=== PATIENT | female | born 1945 | race Caucasian/White ===

== ENCOUNTER 2020-03-28 19:26 | Inpatient (IN) ==
[2020-03-28] MEDS ORDERED: IOPAMIDOL 100 ML BOTTLE IV ONE (19:27)
[2020-03-28] MEDS ORDERED: 0.9 % SODIUM CHLORIDE 1,000 ML IV ONE ×2 (19:42→22:21)
--- NOTE | 2020-03-28 20:06 | Emergency Department Note ---
Abdominal Pain HPI General Chief Complaint: Abdominal Pain Stated Complaint: abd. pain Time Seen by Provider: 03/28/20 19:41 Source: patient and family Mode of arrival: EMS Limitations: no limitations History of Present Illness HPI Narrative: Narrative: Patient is a 74-year-old female who comes into the emergency department today by EMS. Patient reports that she has been seen by GI and was scheduled to have a colonoscopy done next week. She had a CT scan of her abdomen 4 days ago that showed partial large bowel obstruction in the sigmoid colon at the site where diverticulitis had previously occurred. There was concern of scar tissue versus recurrent low-grade diverticulitis or colon cancer. Patient was informed by Lydia Holm through GI to change to liquid diet. Patient reports she was following a liquid diet on Sunday, Sunday, and today she was supposed to take mag citrate. She reports that she had vomited the mag citrate and since that time has been vomiting the mag citrate and Gatorade and has not been able to keep fluids down all day. She does report having a soft brown bowel movement today. She denies any melena or hematochezia. She did start feeling some weakness since starting to have sharp left lower quadrant abdominal pain that comes and goes in waves. She has a history of COPD and reports that she currently uses 3 L of O2 constantly. She has had a slight cough, but this is not a new finding for her. EMS had started an IV and she currently arrives with some normal saline infusing. She reports 133, and a temperature of 101.6. She has not noticed any fevers or chills at home. She denies any back pain, chest pain, shortness of breath, or difficulty breathing. Related Data Home Medications Medication Instructions Recorded Confirmed inhalational spacing device 04/23/17 01/26/20 cholecalciferol (vitamin D3) 2,000 unit PO QDAY 07/24/19 01/26/20 Previous Rx's Medication Instructions Recorded albuterol sulfate 90 mcg/actuation 2 inh INHALATION Q6H #1 each 07/16/19 breath activated powder inhaler fluticasone fur. 100 mcg-umeclid 1 inh INHALATION Q24H #60 each 08/21/19 62.5 mcg-vilant 25 mcg inhalat.powder levothyroxine 100 mcg capsule 100 mcg PO QAM #90 cap 11/17/19 hydroxychloroquine 200 mg tablet 200 mg PO BID #60 tab 12/04/19 prednisone 5 mg tablet See Rx Instructions .ROUTE 12/04/19 .COMPLEX #45 tab amitriptyline 25 mg tablet See Rx Instructions PO QDAY #60 tab 01/27/20 lorazepam 1 mg tablet 2 mg PO QHS #60 tab 01/27/20 hydrocodone 5 mg-acetaminophen 325 1 tab PO QDAY #30 tab 03/23/20 mg tablet tramadol 50 mg tablet See Rx Instructions .ROUTE 03/25/20 .COMPLEX #30 unknown measurement unit code: tablet Allergies Allergy/AdvReac Type Severity Reaction Status Date / Time codeine Allergy Unknown Hallucinati Verified 01/26/20 16:24 ons succinylcholine Allergy Unknown Paralysis Verified 01/26/20 16:24 Review of Systems ROS ROS Narrative: Narrative: Constitutional: Denies fever and chills Eyes: Denies vision change ENT ED: Denies ear pain and throat pain Cardiovascular: Denies chest pain and palpitations Respiratory: Reports cough; Denies shortness of breath and phlegm Gastrointestinal: Reports as per HPI, abdominal pain, nausea and vomiting Genitourinary: Denies dysuria and frequency Musculoskeletal: Denies back pain and joint swelling Integumentary: Denies rash and lesions Neurological: Denies headache and weakness Psychiatric: Denies anxiety and depression Endocrine: Denies fatigue and heat or cold intolerance Hematological/Lymphatic: Denies easy bleeding and easy bruising PFSH Narrative Patient History Narrative: Narrative: Medical/Surgical/Family History All Active Problems (Updated 03/28/20 @ 21:52 by NAY Seirra) Chest pain at rest (Acute) Oral mucosal lesion (Acute) Emphysema of lung (Acute) O2 dependent (Acute) Diverticulitis (Acute) UTI (urinary tract infection) (Acute) Abdominal pain (Acute) Chronic pain after surgical procedure for malignant neoplasm (Chronic) Chronic, continuous use of opioids (Chronic) Depression (Chronic) IBS (irritable bowel syndrome) (Chronic) Osteoporosis (Acute) Polyarthralgia (Acute) Encounter for long-term (current) use of high-risk medication (Acute) 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) Inflammatory arthritis (Acute) H/O malignant neoplasm of breast (Chronic) Generalized joint pain (Chronic) Medicare annual wellness visit, subsequent (Chronic) Breast cancer, left (Chronic) History of tobacco abuse (Chronic) Migraines (Chronic ~2014) Joint pain (Chronic ~2014) Insomnia (Chronic ~2009) Daytime sleepiness (Chronic ~2011) Muscle pain (Chronic ~2011) Arthritis (Chronic ~1999) Hypoxia (Chronic) COPD (chronic obstructive pulmonary disease) (Chronic) Pseudocholinesterase deficiency (Chronic) Pelvic inflammatory disease contact (Chronic) Pneumothorax (Chronic) Anxiety disorder (Chronic ~2009) Chronic hypoxemic respiratory failure (Chronic) Carcinoid tumor of lung (Chronic) Hypothyroidism (Chronic ~2011) Major depressive disorder, recurrent episode, in partial remission (Chronic ~2000) Class 1 obesity with body mass index (BMI) of 30.0 to 30.9 in adult (Chronic) Atherosclerosis of aorta (Chronic) Medical History (Updated 03/28/20 @ 21:52 by NAY Sierra) Anxiety disorder (Chronic ~2009) Arthritis (Chronic ~1999) Atherosclerosis of aorta (Chronic) Breast cancer, left (Chronic) 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 Chronic hypoxemic respiratory failure (Chronic) Chronic pain after surgical procedure for malignant neoplasm (Chronic) Chronic, continuous use of opioids (Chronic) Class 1 obesity with body mass index (BMI) of 30.0 to 30.9 in adult (Chronic) COPD (chronic obstructive pulmonary disease) (Chronic) Daytime sleepiness (Chronic ~2011) Depression (Chronic) Emphysema lung (Chronic) Encounter for long-term (current) use of high-risk medication (Acute) Generalized joint pain (Chronic) H/O malignant neoplasm of breast (Chronic) History of tobacco abuse (Chronic) Hypothyroidism (Chronic ~2011) Hypoxia (Chronic) IBS (irritable bowel syndrome) (Chronic) Inflammatory arthritis (Acute) Insomnia (Chronic ~2009) Joint pain (Chronic ~2014) 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) Major depressive disorder, recurrent episode, in partial remission (Chronic ~2000) Medicare annual wellness visit, subsequent (Chronic) Migraines (Chronic ~2014) Muscle pain (Chronic ~2011) Osteoporosis (Acute) Oxygen dependent (Chronic) nocturnal and with exertion Pelvic inflammatory disease contact (Chronic) Pneumothorax (Chronic) Polyarthralgia (Acute) Pseudocholinesterase deficiency (Chronic) Surgical History History of cataract surgery (Chronic) History of cholecystectomy (Chronic) 2015 History of laparoscopy (Chronic) S/P mastectomy, bilateral (Chronic) Family History Brother Aortic aneurysm Mother COPD (chronic obstructive pulmonary disease) Arthritis Hypertension, essential Heart attack Father Pneumonia Dementia Hypertension, essential Grandfather Stroke Paternal Social History Smoking Status: Former smoker Alcohol Intake Frequency: a few times a month Substance Use: does not use Exam Narrative Narrative: Narrative: General Limitations: no limitations General appearance: alert and in no apparent distress Eye Eye: Present normal appearance, PERRL and EOMI; Absent scleral icterus and conju nctival injection ENT ENT: Present normal oropharynx and mucous membranes moist Neck Neck: Present normal inspection, full ROM and trachea midline; Absent tenderness, lymphadenopathy and thyromegaly Chest Chest: Present symmetric chest wall rise Respiratory Respiratory: Present other (Lung sounds clear to auscultate with slightly diminished bases bilaterally.); Absent respiratory distress, wheezes, stridor, accessory muscle use and prolonged expiratory phase Cardiovascular Cardiovascular: Present normal rhythm and tachycardia; Absent systolic murmur and diastolic murmur Adbominal Abdominal: Present soft, tenderness (Left lower quadrant has moderate tenderness with palpation) and hypoactive bowel sounds; Absent distention, guarding and hernia Extremities Extremities: Present normal inspection, full ROM and normal capillary refill; Absent pedal edema, pretibial edema, calf tenderness and cyanosis Back Back: Present normal inspection; Absent CVA tenderness (R) and CVA tenderness (L) Neurological Neurological: Present alert and oriented X3 Psychiatric Psychiatric: Present normal affect and normal mood Skin Skin: Present warm, dry and normal color Course Course Course Narrative: 2054 -White count 13.7, lactic acid normal. Chest x-ray to my review does not show any definite sign of pneumonia. Will give the patient 50 mg of diphenhydramine and proceed with CT abdomen pelvis with contrast. 2149 -patient returned from CT. She is resting comfortably in the room at this time. Report given to Dr. Espinosa who will assume care at 2199 due to shift [facility]. Vital Signs Vital signs: Vital Signs Temperature 101.6 F H 03/28/20 19:27 Pulse Rate 134 H 03/28/20 19:27 Respiratory Rate 25 H 03/28/20 19:27 Blood Pressure 177/80 03/28/20 19:27 Pulse Oximetry (%) 99 03/28/20 19:27 Temperature 101.6 F H 03/28/20 19:27 Pulse Rate 109 H 03/28/20 21:12 Respiratory Rate 24 H 03/28/20 20:46 Blood Pressure 166/62 03/28/20 21:01 Pulse Oximetry (%) 100 03/28/20 21:12 MDM MDM Narrative Medical decision making narrative: Narrative: Lab Data Result diagrams: 03/28/20 19:56 03/28/20 19:56 Labs: Lab Results 03/28/20 03/28/20 03/28/20 Range/Units 19:56 19:56 19:56 WBC 13.7 H (4.50-11.00) K/mcL RBC 4.09 (3.59-5.38) M/mcL Hgb 10.3 L (11.2-15.7) g/dL Hct 33.2 L (34.1-44.9) % POC Hct 32.0 L (36.0-48.0) % MCV 81.2 (80.0-100.0) fL MCH 25.2 L (26.0-34.0) pg MCHC 31.0 (31.0-36.0) g/dL RDW 14.3 (11.5-14.5) % Plt Count 378 (140-440) K/mcL MPV 10.1 (7.4-10.4) fL Gran % 82.6 H (38.0-78.0) % Lymph % (Auto) 7.0 L (15.5-49.0) % Haskell % (Auto) 9.8 (1.0-12.0) % Eos % (Auto) 0.4 (0.0-7.0) % Baso % (Auto) 0.2 (0.0-2.0) % Gran # 11.27 H (1.80-8.00) K/mcL Lymph # (Auto) 0.96 L (1.50-4.80) K/mcL Haskell # (Auto) 1.34 H (0.10-0.90) K/mcL Eos # (Auto) 0.05 (0.00-0.70) K/mcL Baso # (Auto) 0.03 (0.00-0.30) K/mcL VBG Lactic Acid 0.8 (0.5-2.0) mmol/L POC Sodium 137 (133-145) mmol/L Sodium 134 (133-145) mmol/L POC Potassium 4.1 (3.3-5.1) mmol/L Potassium 4.0 (3.3-5.1) mmol/L POC Chloride 100 (96-108) mmol/L Chloride 97 (96-108) mmol/L Carbon Dioxide 23 (22-30) mmol/L POC Total CO2 24 (22-30) mmol/L Anion Gap 14.0 (8-16) POC BUN 8 (8-23) mg/dl BUN 9 (8-23) mg/dl Creatinine 0.8 (0.6-1.1) mg/dl POC Creatinine 0.7 (0.6-1.1) mg/dl GFR Calculation 74 Glucose 108 H (70-105) mg/dL POC Glucose 109 H (70-105) mg/dL Calcium 8.5 L (8.6-10.4) mg/dl POC WB Ioniz Calcium 1.06 L (1.16-1.32) mmol/L Total Bilirubin 0.4 (0.0-1.0) mg/dL AST 16 (0-37) U/l ALT 16 (0-40) U/l Alkaline Phosphatase 71 (39-117) U/L C-Reactive Protein 16.2 H (0.0-0.8) mg/dl Total Protein 6.4 (5.9-8.4) gm/dL Albumin 3.3 (3.2-5.2) gm/dL Globulin 3.1 (2.2-3.7) gm/dL Albumin/Globulin Ratio 1.1 (1.0-2.3) Lipase 20 (7-60) U/L EKG Data EKG #1: EKG attestation: Yes I reviewed and interpreted this EKG. and Yes There are no EKG findings of acute coronary syndrome EKG shows normal: sinus rhythm Rate: tachycardia Discharge Plan Patient/Caregiver Discharge Instructions Pt seen by [employer] ADMINISTRATOR/PA only: No Clinical Impression: Abdominal pain Patient Disposition: Still a Patient Condition: Undetermined Follow up with: Inez Merida DO [Primary Care Provider] - Prescriptions: No Action ProAir RespiClick 90 mcg/actuation aerosol powdr breath activated 2 inh INHALATION Q6H Qty: 1 RF: 6 levothyroxine 100 mcg capsule 100 mcg PO QAM Qty: 90 RF: 0 amitriptyline 25 mg tablet See Rx Instructions PO QDAY Qty: 60 RF: 2 lorazepam 1 mg tablet 2 mg PO QHS Qty: 60 RF: 2 hydrocodone-acetaminophen 5-325 mg tablet 1 tab PO QDAY Qty: 30 RF: 0 tramadol 50 mg tablet See Rx Instructions .ROUTE .COMPLEX Qty: 30 RF: 3 cholecalciferol (vitamin D3) 2,000 unit/drop drops 2,000 unit PO QDAY RF: 0 (DME) inhalational spacing device [[employer] 1er Z-Stat Plus-Flw Sg] spacer See Dose Instructions .ROUTE .MEDSUPPLY RF: 0 fluticasone fur. 100 mcg-umeclid 62.5 mcg-vilant 25 mcg inhalat.powder 100-62.5-25 mcg blister with device 1 inh INHALATION Q24H Qty: 60 RF: 6 hydroxychloroquine [Plaquenil] 200 mg tablet 200 mg PO BID Qty: 60 RF: 3 prednisone 5 mg tablet See Rx Instructions .ROUTE .COMPLEX Qty: 45 RF: 2
[2020-03-28 20:16] LABS: POC Blood Urea Nitrogen 8 mg/dl (8-23); POC CO2 24 mmol/L (22-30); POC Calcium, Ionized 1.06 mmol/L (1.16-1.32); POC Chloride 100 mmol/L (96-108); POC Creatinine 0.7 mg/dl (0.6-1.1); POC Glucose, Random 109 mg/dL (70-105); POC Potassium 4.1 mmol/L (3.3-5.1); POC Sodium 137 mmol/L (133-145)
[2020-03-28 20:50] LABS: Basophils # (Auto) 0.03 K/mcL (0.00-0.30); Basophils % (Auto) 0.2 % (0.0-2.0); Eosinophils # (Auto) 0.05 K/mcL (0.00-0.70); Eosinophils % (Auto) 0.4 % (0.0-7.0); Granulocytes % (Auto) 82.6 % (38.0-78.0); Hematocrit 33.2 % (34.1-44.9); Hemoglobin 10.3 g/dL (11.2-15.7); Lymphocytes # (Auto) 0.96 K/mcL (1.50-4.80); Mean Cell Volume 81.2 fL (80.0-100.0); Mean Platelet Volume 10.1 fL (7.4-10.4); Monocytes # (Auto) 1.34 K/mcL (0.10-0.90); Monocytes % (Auto) 9.8 % (1.0-12.0); Platelet Count 378 K/mcL (140-440); RBC 4.09 M/mcL (3.59-5.38); Red Cell Distribution Width 14.3 % (11.5-14.5); WBC 13.7 K/mcL (4.50-11.00)
[2020-03-28] MEDS ORDERED: diphenhydrAMINE 50 MG/ML VIAL IV ONE (20:56)
[2020-03-28 21:07] LABS: ALT/SGPT 16 U/l (0-40); AST/SGOT 16 U/l (0-37); Albumin 3.3 gm/dL (3.2-5.2); Albumin/Globulin Ratio 1.1 (1.0-2.3); Alkaline Phosphatase 71 U/L (39-117); Bilirubin,Total 0.4 mg/dL (0.0-1.0); Blood Urea Nitrogen 9 mg/dl (8-23); C-Reactive Protein 16.2 mg/dl (0.0-0.8); Calcium 8.5 mg/dl (8.6-10.4); Carbon Dioxide 23 mmol/L (22-30); Chloride 97 mmol/L (96-108); Globulin 3.1 gm/dL (2.2-3.7); Glomerular Filtration Rate 74; Glucose 108 mg/dL (70-105)
--- NOTE | 2020-03-28 22:00 | XRay Report ---
HISTORY: Cough, COPD, left upper lobe carcinoma FINDINGS: Patient has moderate emphysema. A well-circumscribed 3.4 x 4 cm mass is present in the left upper lobe superimposed over the left upper hilum. This continues to slowly enlarged compared with prior CT scans done on 01/07/2019 and 09/15/2019. No new lung mass is developed. There is no evidence of pneumonia or pleural effusion. The heart size is normal. IMPRESSION: Stable emphysema Slowly enlarging tumor at the boundary of the superior segment of the lingula and anterior segment of the left upper lobe Interpreted and Authenticated by: Ketan Johnson 03/28/20
[2020-03-28 22:22] LABS: Appearance,Urine CLEAR; Bacteria,Urine MOD /hpf (0); Bilirubin,Urine NEG (NEG); Color,Urine YELLOW; Culture Indicated,Urine YES; Glucose,Urine (UA) NEGATIVE (NEG); Ketones,Urine 20 mg/dL (NEG); Leukocyte Esterase,Urine 75 /uL (NEG); Mucus,Urine FEW /hpf (0); Nitrate,Urine NEG (NEG); Protein,Urine 30 mg/dL (NEG); Urine Blood 0.03 mg/dL (<0.03); Urine RBC 2 /hpf (0-1); Urine Squamous Epithelial Cell 1 /hpf (0-4); Urine WBC 20 /hpf (0-4); Urobilinogen,Urine NEG (NEG)
--- NOTE | 2020-03-28 22:23 | Cat Scan Report ---
History: Left lower quadrant pain and leukocytosis TECHNIQUE: The patient was imaged following intravenous contrast during the portal venous phase and excretory phase. Sagittal and coronal reformats were created. The radiation exposure was limited using dose reduction technology. FINDINGS: Moderate centrilobular emphysema is present in both lower lobes. There are multiple multiple cysts in the liver measuring up to 7.2 cm. These are chronic stable findings, seen in 07/12/18. The spleen is normal in size and homogeneous. The gallbladder has been removed. The bile ducts are nondilated. There is an no mass or inflammation the pancreas. Left adrenal gland is mildly hyperplastic. The right adrenal when is normal. The enlarged left adrenal is a chronic stable finding. In the midportion of the right kidney there is a nonobstructing 3 x 4 mm calculus. Small parapelvic cysts are present in the lower pole of the right kidney and there is no hydronephrosis or mass in the right kidney. The left kidney there is a 8 mm cyst in the lower pole calyx. Moderate hydronephrosis is present in the left kidney and there is dilatation of the left ureter down to the lower pelvis. This is a new finding since recent CT done on 03/24/20. There are no stones within the ureter nor the urinary bladder. Patient has diverticulitis in the sigmoid colon. There is stranding of the surrounding fat. There is also tethering which may be formation of adhesions between the sigmoid and the adjacent loops of small bowel, as well as the left ureter. The left ureter is probably being obstructed by inflammation and fibrosis secondary to the chronic diverticulitis. Diverticulitis was seen in the same region on the prior CTs done on 03/24/2020 and 07/09/2019. The fibrotic changes have evolved. There is no evidence of an abscess or ascites. Uterus and ovaries are atrophic and normal for patient's age. The appendix is noninflamed. Small intestine is nondistended. Moderate amount stool is present in the colon above the diverticulitis. IMPRESSION: Chronic/recurrent diverticulitis in the sigmoid colon. The inflammation is causing partial obstruction of the distal left ureter and fecal impaction proximal to the inflamed segment of colon Moderate hydronephrosis in the left kidney, due to sigmoid diverticulitis causing obstruction of the distal left ureter Nonobstructing stones in both kidneys Emphysema Stable hepatic cysts Interpreted and Authenticated by: Ketan Johnson 03/28/20
[2020-03-28] MEDS ORDERED: CIPROFLOXACIN 400 MG/200 ML BAG IV ONE (22:28)
[2020-03-28] MEDS ORDERED: metroNIDAZOLE 500 MG/100 ML BAG IV ONE (22:28)
[2020-03-28] MEDS ORDERED: HYDROXYCHLOROQUINE 200 MG TABLET PO ONE (23:04)
[2020-03-28] MEDS ORDERED: HYDROcodone/APAP 5/325MG TABLET PO ONE (23:05)
[2020-03-28] MEDS ORDERED: AMITRIPTYLINE 25 MG TABLET PO ONE (23:05)
[2020-03-28] MEDS ORDERED: LORazepam 1 MG TABLET PO ONE (23:05)
[2020-03-28] MEDS ORDERED: ONDANSETRON 4 MG/2 ML VIAL IV PRN (23:21)
[2020-03-28] MEDS ORDERED: CIPROFLOXACIN 400 MG/200 ML BAG IV SCH (23:30)
[2020-03-28] MEDS ORDERED: metroNIDAZOLE 500 MG/100 ML BAG IV SCH (23:30)
[2020-03-28] MEDS: 0.45 % SODIUM CHLORIDE 1,000 ML IV SCH (23:55)
[2020-03-29] MEDS: 0.9 % SODIUM CHLORIDE 10 ML SYRINGE IV SCH ×3 (04:09→20:32)
[2020-03-29] MEDS: metroNIDAZOLE 500 MG/100 ML BAG IV SCH ×3 (04:43→20:22)
[2020-03-29] MEDS ORDERED: metroNIDAZOLE 500 MG/100 ML BAG IV ONE (04:46)
[2020-03-29] MEDS: HYDROmorphone 0.5 MG/0.5 ML SYRINGE IV PRN ×3 (05:38→18:37)
[2020-03-29] MEDS: 0.45 % SODIUM CHLORIDE 1,000 ML IV SCH ×4 (07:20→18:37)
[2020-03-29] MEDS: CIPROFLOXACIN 400 MG/200 ML BAG IV SCH ×2 (08:35→20:26)
[2020-03-29] MEDS ORDERED: CIPROFLOXACIN 400 MG/200 ML BAG IV SCH (09:00)
[2020-03-29] MEDS: DOCUSATE SODIUM 100 MG CAPSULE PO SCH ×2 (09:26→20:32)
--- NOTE | 2020-03-29 15:44 | Brief Operative Note ---
Brief Operative Note Date of procedure: 03/29/20 Pre-op diagnosis: acute appendicitis Post-op diagnosis: other (acute appendicitis) Procedure: laparoscopic appendectomy Grafts/Implants: No Anesthesia: GETA Findings: acute suppurative appendicitis Complications: none Surgeon: Loyda Horta Estimated blood loss (cc): 10 Specimens Removed/Pathology: other (appendix) Condition: stable Disposition: PACU
--- NOTE | 2020-03-29 17:11 | General Surg History&Physical ---
HPI History of Present Illness Patient information: Note initiated : 03/29/20 at 4:42 pm Service Date, if different from initiated Date: [] Patient: Katina Guzmán a 74 y/o F admitted on 03/28/20 for abd. pain. Chief Complaint: [] Chief complaint: colonic obstruction; recurrent nausea vomiting History of present illness: Ms. Guzmán is a 74 year old F admitted with evidence of mid sigmoid colon obstruction with history of chronic diarrhea and recurrent nausea and vomiting. The patient has a 10 month history of left-sided abdominal pain with associated the 15-20 bowel movements per day. This has been continuous since onset. She has taken intermittent laxatives to have a bowel movement and then would take antidiarrheals to stop the diarrhea. She denies rectal bleeding. She has been followed by gastroenterology. She denies weight loss. Recent CT done last evening shows near complete obstruction of her mid sigmoid colon with large volume of stool proximal to the area of obstruction. She has a circumferential lesion in the mid sigmoid with minimal lumen suggesting more likely a neoplastic lesion or chronic high-grade obstruction with high-grade stricture. She was admitted last evening. There was a plan to do colonoscopy tomorrow but the patient has high-grade obstruction and will need operative therapy. The patient has severe chronic obstructive lung disease with FEV1 of .56 L. 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 She has been oxygen dependent for many years. I discussed the patient with finance lecturer who feels that the patient should have surgery at a facility where there are critical care, pulmonary and cardiac support. Quite agreeable with this and will make arrangements to have her transferred hopefully to [facility]. Constitutional Constitutional: Present malaise, weakness and weight loss EENT Eyes: Absent blurry vision, loss of peripheral vision and loss of vision Ears: Absent decreased hearing and tinnitus Nose, mouth and throat: Present headache(s); Absent disequilibrium and dizziness Breasts Breasts: Present other (status post bilateral mastectomy) Cardiovascular Cardiovascular: Present dyspnea on exertion, palpatations and rapid heart rate; Absent chest pain, edema and pedal edema Respiratory Respiratory: Present cough, dyspnea, dyspnea on exertion, wheezing and chest congestion Gastrointestinal Gastrointestinal: Present abdominal pain, change in bowel habits, change in stool character, constipation, cramping, diarrhea, heartburn, loose stools, nausea and vomiting Genitourinary Genitourinary: Present dysuria, urinary frequency and urinary urgency Musculoskeletal Musculoskeletal: Present abnormal gait, arthralgias, muscle weakness and myalgias Integumentary Integumentary: Absent pruritus and rash Neurological Neurological: Present dizziness, headache(s) and vertigo; Absent abnormal gait and abnormal hearing Psychiatric Psychiatric: Present anxiety, confusion and depression Endocrine Endocrine: Absent flushing and palpitations Hematologic/Lymphatic Hematologic/Lymphatic: Absent easy bleeding, easy bruising and lymphadenopathy Allergic/Immunologic Allergic/Immunologic: Absent tongue swelling, throat swelling, itchy eyes, ut icaria, wheezing and lip swelling [facility] Medical History (Updated 03/29/20 @ 17:07 by Loyda Horta MD) Anxiety disorder (Chronic ~2009) Arthritis (Chronic ~1999) Atherosclerosis of aorta (Chronic) Breast cancer, left (Chronic) 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 Chronic hypoxemic respiratory failure (Chronic) Chronic pain after surgical procedure for malignant neoplasm (Chronic) Chronic, continuous use of opioids (Chronic) Class 1 obesity with body mass index (BMI) of 30.0 to 30.9 in adult (Chronic) COPD (chronic obstructive pulmonary disease) (Chronic) Daytime sleepiness (Chronic ~2011) Depression (Chronic) Emphysema lung (Chronic) Encounter for long-term (current) use of high-risk medication (Acute) Generalized joint pain (Chronic) H/O malignant neoplasm of breast (Chronic) History of tobacco abuse (Chronic) Hypothyroidism (Chronic ~2011) Hypoxia (Chronic) IBS (irritable bowel syndrome) (Chronic) Inflammatory arthritis (Acute) Insomnia (Chronic ~2009) Joint pain (Chronic ~2014) long-term (current) use of systemic steroids (Acute) Major depressive disorder, recurrent episode, in partial remission (Chronic ~2000) Medicare annual wellness visit, subsequent (Chronic) Migraines (Chronic ~2014) Muscle pain (Chronic ~2011) Osteoporosis (Acute) Oxygen dependent (Chronic) nocturnal and with exertion Pelvic inflammatory disease contact (Chronic) Pneumothorax (Chronic) Polyarthralgia (Acute) Pseudocholinesterase deficiency (Chronic) Surgical History History of cataract surgery (Chronic) History of cholecystectomy (Chronic) 2014 History of laparoscopy (Chronic) S/P mastectomy, bilateral (Chronic) Family History Brother Aortic aneurysm Mother COPD (chronic obstructive pulmonary disease) Arthritis Hypertension, essential Heart attack Father Pneumonia Dementia Hypertension, essential Grandfather Stroke Paternal Social History (Updated 01/26/20 @ 16:54 by Inez Merida DO) marital status: education level: college occupational status: 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 100 mcg-umeclid 1 inh INHALATION Q24H #60 each 08/21/19 03/28/20 Rx 62.5 mcg-vilant 25 mcg inhalat.powder levothyroxine 100 mcg capsule 100 mcg PO QAM #90 cap 11/17/19 03/28/20 Rx hydroxychloroquine 200 mg tablet 200 mg PO BID #60 tab 12/04/19 03/28/20 Rx lorazepam 1 mg tablet 2 mg PO QHS #60 tab 01/27/20 03/28/20 Rx albuterol sulfate [ProAir 2 inh INHALATION Q6H PRN 03/28/20 03/28/20 History RespiClick] amitriptyline 25 mg PO QHS 03/28/20 03/28/20 History hydrocodone-acetaminophen 1 tab PO QHS 03/28/20 03/28/20 History prednisone 5 mg PO QDAY 03/28/20 03/28/20 History tramadol 50 mg PO BID PRN 03/28/20 03/28/20 History Allergies Allergy/AdvReac Type Severity Reaction Status Date / Time codeine AdvReac Mild Hallucinati Verified 03/29/20 06:10 ons Physical Examination Vital Signs Vital signs: Temp Pulse Resp BP Pulse Ox 98.2 F 102 H 16 114/52 100 03/29/20 16:00 03/29/20 16:00 03/29/20 16:00 03/29/20 16:00 03/29/20 16:00 General physical appearance General physical exam: no distress, moderate pain and chronically ill Eyes Eye exam: PERRL and normal ocular movement ENT ENT exam: normal pinna, normal mucosa and decreased hearing Head Head exam IM: Present atraumatic, normal inspection and normocephalic Neck Neck exam: no masses, no bruits, trachea midline, no lymphadenopathy and no venous distension Cardiovascular Cardiovascular exam IM: Present normal rate and rhythm, JVD, RRR, +S1 and +S2 Respiratory Respiratory exam: normal expansion, normal respiratory effort, clear to perc ussion and clear to auscultation Abdomen Abdomen: Present soft and tender (tenderness in left lower quadrant and suprapubic area) Integumentary Integumentary: Present no rash, no growths and no abnormal pigmentation Neurologic Neurologic: Present normal coordination and normal sensation Musculoskeletal Musculoskeletal: Present normal gait and normal posture Psychiatric Psychiatric: Present oriented to time, oriented to person, oriented to place, speech is normal and memory intact Results Labs Result diagrams: 03/28/20 19:56 03/28/20 19:56 Labs: Abnormal lab results 03/28/20 03/28/20 03/28/20 Range/Units 19:56 19:56 21:13 WBC 13.7 H (4.50-11.00) K/mcL Hgb 10.3 L (11.2-15.7) g/dL Hct 33.2 L (34.1-44.9) % POC Hct 32.0 L (36.0-48.0) % MCH 25.2 L (26.0-34.0) pg Gran % 82.6 H (38.0-78.0) % Lymph % (Auto) 7.0 L (15.5-49.0) % Gran # 11.27 H (1.80-8.00) K/mcL Lymph # (Auto) 0.96 L (1.50-4.80) K/mcL [place] # (Auto) 1.34 H (0.10-0.90) K/mcL Glucose 108 H (70-105) mg/dL POC Glucose 109 H (70-105) mg/dL Calcium 8.5 L (8.6-10.4) mg/dl POC WB Ioniz Calcium 1.06 L (1.16-1.32) mmol/L C-Reactive Protein 16.2 H (0.0-0.8) mg/dl Urine Protein 30 A (NEG) mg/dL Urine Ketones 20 A (NEG) mg/dL Urine Occult Blood 0.03 A (<0.03) mg/dL Ur Leukocyte Esterase 75 A (NEG) /uL Urine RBC 2 H (0-1) /hpf Urine WBC 20 H (0-4) /hpf Urine Bacteria Mod A (0) /hpf Diabetes panel 03/28/20 Range/Units 19:56 Sodium 134 (133-145) mmol/L Potassium 4.0 (3.3-5.1) mmol/L Chloride 97 (96-108) mmol/L Carbon Dioxide 23 (22-30) mmol/L BUN 9 (8-23) mg/dl Creatinine 0.8 (0.6-1.1) mg/dl Glucose 108 H (70-105) mg/dL Calcium 8.5 L (8.6-10.4) mg/dl AST 16 (0-37) U/l ALT 16 (0-40) U/l Alkaline Phosphatase 71 (39-117) U/L Total Protein 6.4 (5.9-8.4) gm/dL Albumin 3.3 (3.2-5.2) gm/dL Calcium panel 03/28/20 Range/Units 19:56 Calcium 8.5 L (8.6-10.4) mg/dl Albumin 3.3 (3.2-5.2) gm/dL Pituitary panel 03/28/20 Range/Units 19:56 Sodium 134 (133-145) mmol/L Potassium 4.0 (3.3-5.1) mmol/L Chloride 97 (96-108) mmol/L Carbon Dioxide 23 (22-30) mmol/L BUN 9 (8-23) mg/dl Creatinine 0.8 (0.6-1.1) mg/dl Glucose 108 H (70-105) mg/dL Calcium 8.5 L (8.6-10.4) mg/dl Adrenal panel 03/28/20 Range/Units 19:56 Sodium 134 (133-145) mmol/L Potassium 4.0 (3.3-5.1) mmol/L Chloride 97 (96-108) mmol/L Carbon Dioxide 23 (22-30) mmol/L BUN 9 (8-23) mg/dl Creatinine 0.8 (0.6-1.1) mg/dl Glucose 108 H (70-105) mg/dL Calcium 8.5 L (8.6-10.4) mg/dl Total Bilirubin 0.4 (0.0-1.0) mg/dL AST 16 (0-37) U/l ALT 16 (0-40) U/l Alkaline Phosphatase 71 (39-117) U/L Total Protein 6.4 (5.9-8.4) gm/dL Albumin 3.3 (3.2-5.2) gm/dL All other labs normal. A/P Assessment and plan (1) Colonic obstruction: Status: Acute (2) Chronic hypoxemic respiratory failure: Status: Chronic (3) COPD (chronic obstructive pulmonary disease): Status: Chronic Qualifiers: COPD type: emphysema Emphysema type: panlobular Qualified Code(s): J43.1 - Panlobular emphysema (4) Pseudocholinesterase deficiency: Status: Chronic (5) Breast cancer, left: Status: Chronic Qualifiers: Breast location: unspecified site of breast Estrogen receptor status: unspecified Patient sex: female Qualified Code(s): C50.912 - Malignant neoplasm of unspecified site of left female breast (6) manager terminal (current) use of systemic steroids: Status: Acute (7) Chronic, continuous use of opioids: Status: Chronic (8) Carcinoid tumor of lung: Status: Chronic Comment: left upper lobe Qualifiers: Carcinoid tumor malignancy status: unspecified whether malignant Qualified Code(s): D3A.090 - Benign carcinoid tumor of the bronchus and lung (9) Major depressive disorder, recurrent episode, in partial remission: Status: Chronic Narrative A/P Narrative: the patient has near complete obstruction of sigmoid. This has been progressively increasing over the past 8 months. She's been treated for presumed diverticulitis but has not made any improvement. She will need urgent colectomy and colostomy. She has severe oxygen dependent chronic obstructive lung disease with an FEV1 of 0.56 L. She also has a carcinoid of the left lung which does not appear to be causing any symptoms at this time. She is not a candidate for resection of the tumor because of her limited pulmonary capacity. This was discussed with the patient and she is advised that she needs to be treated at a facility which has critical care, peer specialist, cardiology as well as surgeons who were willing to do the most expeditious procedure which would be an open colectomy with colostomy. I will try to get our transfer people to arrange this. Time Spent With Patient Time: Total time spent is greater than 50% in coordination of care (as documented) at patient's floor/unit and/or counseling patient:
[2020-03-29] MEDS ORDERED: LORazepam 1 MG TABLET PO ONE (18:48)
[2020-03-29] MEDS ORDERED: HYDROXYCHLOROQUINE 200 MG TABLET PO ONE (20:13)
[2020-03-29] MEDS: AMITRIPTYLINE 25 MG TABLET PO SCH ×2 (20:19→20:32)
[2020-03-29] MEDS ORDERED: SENNOSIDES 1 TABLET PO SCH (21:00)
[2020-03-30] MEDS ORDERED: HYDROXYCHLOROQUINE 200 MG TABLET PO SCH (18:47)
== END 2020-03-29 21:16 | disposition other institution (70) | DRG 389 ==
LOC: ED 19:26 → MEDSUR 23:48
PROVIDERS: ADMIT Family Medicine Adult Medicine; ATTEND Family Medicine Adult Medicine